=== PATIENT | female | born 1990 | race Two or more races ===

== ENCOUNTER 2017-02-25 23:44 | Emergency (ER) | payer BC ==
[~2017-02-25] VITALS: Ht 162.6 cm; Wt 44.5 kg
[2017-02-25] MEDS ORDERED: ZYRTEC10 MG ORAL (23:57)
[2017-02-26] VITALS: BP 130/87
[2017-02-26] MEDS ORDERED: IBUPROFEN600 MG ORAL (00:51)
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
[2017-02-26 01:00] VITALS: BP 130/87
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
[2017-02-27] MEDS ORDERED: CYCLOBENZAPRINE10 MG ORAL (17:36)
== END 2017-02-26 01:00 | disposition home or self-care (01) ==
LOC: EMR 23:59
DX: S16.1XXA Strain of muscle, fascia and tendon at neck level, initial encounter (principal); V43.52XA Car driver injured in collision with other type car in traffic accident, initial encounter; Y92.414 Local residential or business street as the place of occurrence of the external cause
CPT/HCPCS: 72040; 99283

== ENCOUNTER 2018-05-17 19:16 | Emergency (ER) | payer SELFPAY ==
[~2018-05-17] VITALS: Ht 162.6 cm; Wt 47.6 kg
[~2018-05-17 19:16] MED LIST: CYCLOBENZAPRINE10 MG ORAL; IBUPROFEN600 MG ORAL; ZYRTEC10 MG ORAL
[2018-05-17] MEDS ORDERED: Bacitracin Oint UD TOPIC ONE (19:45)
[2018-05-17] MEDS ORDERED: Norco 5mg/325mg tab ORAL ONE (19:45)
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
[2018-05-17] MEDS ORDERED: BACITRACIN-P28.35 GM TP (20:18)
[2018-05-17] MEDS ORDERED: NORCO 5-325 TA1 EACH ORAL (20:18)
[2018-05-17] MEDS ORDERED: IBUPROFEN600 MG ORAL (20:18)
[2018-05-17 20:40] VITALS: BP 123/72
--- NOTE | 2018-05-18 09:45 | Diagnostic Imaging Report ---
Indication: Ankle pain Technique: 3 views of the left ankle Comparison: none Findings: There is a transverse nondisplaced fracture of the distal fibula. There is overlying soft tissue swelling. No tibial or talar fracture demonstrated. The joint spaces are preserved Impression: Positive for nondisplaced distal fibular fracture This represents a discrepancy from findings reported by the ER physician in the electronic medical record. Discrepant findings phoned to Dr. Hernandez in the emergency room at the time of interpretation
[2018-05-19] MEDS ORDERED: NORCO 5-325 TA1 EACH ORAL (15:10)
== END 2018-05-17 20:40 | disposition home or self-care (01) ==
LOC: EMR 19:29
DX: S82.832A Other fracture of upper and lower end of left fibula, initial encounter for closed fracture (principal); S93.402A Sprain of unspecified ligament of left ankle, initial encounter; W05.1XXA Fall from non-moving nonmotorized scooter, initial encounter; Y92.488 Other paved roadways as the place of occurrence of the external cause; Z88.6 Allergy status to analgesic agent
CPT/HCPCS: 99283